=== PATIENT | female | born 1985 | race American Indian/Alaskan Native ===

== ENCOUNTER 2021-10-01 10:13 | Day surgery (SDC) | payer MEDICAID ==
[~2021-10-01 10:13] MED LIST: SODIUM CHLORIDE 0.9% 1000 ML 1,000 ML IV SCH
--- NOTE | 2021-10-01 11:35 | Anesthesia Consultation ---
Anesthesia Consult and Med Hx Date of service: 10/01/21 - Airway Anesthetic Teeth Evaluation: Good ROM Head & Neck: Adequate Mental/Hyoid Distance: Adequate Mallampati Class: Class I Intubation Access Assessment: Good - Pulmonary Exam CTA: Yes - Pre-Operative Health Status ASA Pre-Surgery Classification: ASA2 Proposed Anesthetic Plan: MAC - Pulmonary Hx Smoking: Yes (Marijuana) Hx Asthma: Yes ( induced) Hx Respiratory Symptoms: No - Cardiovascular System Hx Hypertension: No Hx Heart Attack/AMI: No - Central Nervous System Hx Seizures: No Hx Psychiatric Problems: No - Gastrointestinal Hx Ulcer: No - Endocrine Hx Renal Disease: No Hx Liver Disease: No Hx Insulin Dependent Diabetes: No Hx Non-Insulin Dependent Diabetes: No - Hematic Hx Anemia: No - Other Systems Hx Alcohol Use: Yes (Occasionally) Hx Substance Use: Yes (Marijuana) Hx Cancer: No - Additional Comments Anesthesia Medical History Comments: Denied anesthesia complications
--- NOTE | 2021-10-01 11:36 | Anesthesia Day of Surgery ---
Anesthesia Day of Surgery - Day of Surgery Patient Examined: Yes Patient H&P Reviewed: Yes Patient is NPO: Yes Beta Blockers: No Cardiac Clearance: No Pulmonary Clearance: No
[2021-10-01] MEDS ORDERED: fentaNYL 100 MCG/2 ML INJ ONE (11:38)
[2021-10-01] MEDS ORDERED: propofoL 200 MG/20 ML VIAL IV ONE ×2 (11:39→11:52)
[2021-10-01] MEDS ORDERED: LIDOCAINE 2% UROJECT 10 ML JELLY ONE (11:54)
[2021-10-01] MEDS ORDERED: LIDOCAINE MPF (2%) 20 MG/1 ML VIAL 5 ML ONE (12:02)
[2021-10-01] MEDS ORDERED: LIDOCAINE 2% UROJECT 10 ML JELLY TP ONE (12:02)
--- NOTE | 2021-10-01 12:17 | Procedure Note ---
Date of procedure: 10/01/21 Pre-op diagnosis: Hematochezia Post-op diagnosis: other (Hematchezia secondary Moderate Internal Hemorrhoids (s/p Banding x 3)/ Few, Left colon diverticuli/ No Colon Polyps or Colitis noted) Procedure: Colonoscopy/ Flexible sigmoidoscopy with banding x 3 Anesthesia: MAC Surgeon: ANGEL LUIS BOB Estimated blood loss: minimal Pathology: none Condition: stable Disposition: same day (Avoid aspirin and NSAID for 5 days, otherwise resume previous medication. Treat with Tramadol,Sitz Bath and OTC Hemorrhoidal me dication and F/U in 1 to 2 weeks ([phone]).)
--- NOTE | 2021-10-01 12:45 | Operative Report ---
DATE OF SURGERY: 10/01/2021 PROCEDURE: Flexible sigmoidoscopy with banding x3. INDICATIONS: This is a 36-year-old -[place] female, in otherwise good health, who had a recent childbirth, following which she had hematochezia. Colonoscopy showed moderate internal hemorrhoids and a few left colon diverticular disease with no evidence of colitis or colon polyps. A flexible sigmoidoscopy with banding x3 was done to help treat the moderate internal hemorrhoids as source of the patient's hematochezia. DESCRIPTION OF PROCEDURE: Procedure was done by introducing the EGD scope with the banding apparatus that was mounted on it. The scope was retroflexed and 3 of the largest hemorrhoids were suctioned into the suction channel and band was applied to each of the 3 hemorrhoids. At the end of the procedure, once the scope was withdrawn, lidocaine gel was then inserted into the rectal vault and smeared to help minimize any rectal pain. ASSESSMENT: Hematochezia secondary to moderate internal hemorrhoids, status post banding x3. The patient will be given analgesics and asked to take Sitz bath, avoid aspirin and aspirin-related products and use [id number] hemorrhoidal medication and also take fiber supplements because of the presence of diverticular disease and asked to follow up in the office in 1-2 weeks' time. Procedure was done in the GI lab with assistance of the GI lab team, which included the GI nurse, the certified appliance service technician and with assistance of anesthesia. TID: [id number] RECEIPT: [id number] MAXIMINO/ROGELIO
--- NOTE | 2021-10-01 12:45 | Operative Report ---
DATE OF SURGERY: 10/01/2021 PROCEDURE PERFORMED: Colonoscopy. INDICATIONS: This is a 36-year-old -[place] female in otherwise good health, who has recently had a childbirth. Following the childbirth, the patient has been having hematochezia. Colonoscopy was done to make sure there was not any significant lower GI pathology that would account for the hematochezia. DESCRIPTION OF PROCEDURE: Procedure was done after getting informed consent with MAC anesthesia. Initial rectal examination was unremarkable. The instrument was passed through the rectum onto the cecum, which was identified with ileocecal valve and appendiceal orifice. Visualization was fair to good. Cecum, ascending colon, transverse colon showed normal mucosa. There were a few diverticula noted in the left colon. There were no colon polyps noted. No evidence of colitis noted. The rectum showed moderate internal hemorrhoid, which may have been the cause of the patient's hematochezia. ASSESSMENT: Hematochezia secondary to moderate internal hemorrhoids and a few left colon diverticula. No colon polyps noted. No evidence of colitis. There was minimal bleeding associated with the colonoscopy. No complications associated with the procedure. PLAN: To do a flexible sigmoidoscopy with banding and to treat the patient with analgesics, sitz bath and hemorrhoidal medication. Have the patient avoid aspirin and aspirin-related products and follow up in the office in 1-2 weeks' time. Procedure was done in the GI lab with assistance of the GI lab team, which included the GI nurse, the accounts payable technician and with assistance of anesthesia. TID: [id number] RECEIPT: [id number] MAXIMINO/NICK
--- NOTE | 2021-10-01 12:56 | Post Anesthesia Evaluation ---
- Post Anesthesia Evaluation Patient Participated: Yes Airway Patent: Yes Stable Respiratory Function: Yes Nausea/Vomiting: No Temp > 96.8F: Yes Pain Manageable: Yes Adequeate Hydration: Yes Anesthesia Complications: No Block Receding Appropriately: Not Applicable Patient on Ventilator: No
[2021-10-01 13:51] VITALS: BP 125/75
== END 2021-10-01 13:00 | disposition home or self-care (01) ==
LOC: GIO 10:13
DX: K62.5 Hemorrhage of anus and rectum (principal); K64.8 Other hemorrhoids; K57.30 Diverticulosis of large intestine without perforation or abscess without bleeding; J45.909 Unspecified asthma, uncomplicated; Z72.89 Other problems related to lifestyle; Z88.8 Allergy status to other drugs, medicaments and biological substances
CPT/HCPCS: 45378; 46221; 81025; J2704; J3010; J3490; J7030; J7120; Q0162